=== PATIENT | female | born 1995 | race Two or more races ===

== ENCOUNTER 2022-03-20 16:46 | Emergency (ER) | payer SELFPAY ==
[~2022-03-20] VITALS: Ht 162.6 cm; Wt 57.0 kg
[2022-03-20] MEDS ORDERED: KETOROLAC 15MG/ML VIAL IV ONE (17:15)
[2022-03-20] MEDS ORDERED: FAMOTIDINE 20MG/2ML VIAL IV ONE (17:15)
[2022-03-20] MEDS ORDERED: SODIUM CHLORIDE 0.9% 500 ML IV ONE (17:30)
[2022-03-20 17:33] LABS: CLARITY URINE CLEAR (CLEAR); COLOR URINE YELLOW (YELLOW); KETONES URINE TRACE (NEGATIVE); LEUKOCYTE ESTERASE URINE NEGATIVE (NEGATIVE); NITRITE URINE NEGATIVE (NEGATIVE); OCCULT BLOOD URINE NEGATIVE (NEGATIVE); PROTEIN URINE NEGATIVE (NEGATIVE); SPECIFIC GRAVITY URINE 1.015 (1.005-1.030); UROBILINOGEN URINE 0.2 E.U./dL (0.2-1.0)
[2022-03-20 17:45] LABS: *AMPHETAMINES SCREEN URINE NEGATIVE (NEGATIVE); *BARBITURATES SCREEN URINE NEGATIVE (NEGATIVE); *BENZODIAZEPINES SCREEN URINE NEGATIVE (NEGATIVE); *COCAINE SCREEN URINE NEGATIVE (NEGATIVE); CANNABINOID URINE SCREEN PRESUMTIVE POSITIVE (NEGATIVE); METHADONE URINE SCREEN NEGATIVE (NEGATIVE); OPIATES URINE SCREEN NEGATIVE (NEGATIVE); PHENCYCLIDINE URINE SCREEN NEGATIVE (NEGATIVE)
[2022-03-20 18:19] LABS: BASOPHILS % 0.5 % (0.0-2.0); EOSINOPHILS % 0.1 % (0.0-5.0); HEMATOCRIT. 36.5 % (36.0-48.0); HEMOGLOBIN. 11.8 g/dL (12.0-16.0); LYMPHOCYTES % 14.4 % (20.0-50.0); MEAN CORPUSCULAR HEMOGLOBIN 29.4 pg (28.0-32.0); MEAN CORPUSCULAR VOLUME 90.8 fL (81.0-99.0); MEAN PLATELET VOLUME 8.8 fl (7.4-10.4); MONOCYTES % 6.7 % (2.0-8.0); NEUTROPHILS % 78.3 % (40.0-76.0); PLATELET 282 x1000/uL (130-400); RED BLOOD CELL COUNT 4.01 mill/uL (4.2-5.4); RED CELL DISTRIBUTION WIDTH 14.1 % (11.6-14.6)
[2022-03-20 18:24] LABS: CHLORIDE 108 mEq/L (98-107)
[2022-03-20 18:29] LABS: ETHANOL BLOOD < 10 mg/dL; HCG SCREEN NEGATIVE
[2022-03-20] MEDS ORDERED: POTASSIUM CHLORIDE 20MEQ TABLET SR PO ONE (19:30)
[2022-03-20 19:50] VITALS: BP 120/70
== END 2022-03-20 19:55 | disposition home or self-care (01) ==
LOC: ER 16:46 → EDBD 16:46 → ER 19:55
DX: R10.13 Epigastric pain (principal); R06.4 Hyperventilation; R55 Syncope and collapse
CPT/HCPCS: 36415; 80053; 80305; 80320; 81003; 81025; 83690; 84703; 85025; 96361; 96374; 96375; 99284; J1885; J3490; J7030; G0480